=== PATIENT | male | born 1975 | race Caucasian/White ===

== ENCOUNTER 2020-05-05 18:59 | Emergency (ER) | payer SELFPAY ==
[~2020-05-05] VITALS: Ht 180.3 cm; Wt 61.8 kg
[~2020-05-05 18:59] MED LIST: HYDR1TAB PO; NAPR-232 PO; NO HOME MEDS
--- NOTE | 2020-05-05 19:11 | NUR ---
PT SISTER [phone]. THIS IS PT PREFERRED CONTACT. NOT . NUMBER PROVIDED FOR EMERGENCY ONLY. PT ZANE- [phone]
[2020-05-05 21:08] LABS: BASOPHILS % (AUTO) 0.4 % (0-1); EOSINOPHILS % (AUTO) 0.2 % (0-6); HEMATOCRIT 37.6 % (42.0-52.0); LYMPHOCYTES # (AUTO) 2.2 X10'3 (1.1-4.8); LYMPHOCYTES % (AUTO) 24.9 % (21-51); MEAN CORPUSCULAR HEMOGLOBIN 31.6 PG (27.0-31.0); MEAN CORPUSCULAR HGB CONC 34.5 g/dL (33.0-36.5); MEAN CORPUSCULAR VOLUME 91.6 FL (78-98); MEAN PLATELET VOLUME 6.5 FL (7.4-10.4); MONOCYTES # (AUTO) 0.8 X10'3 (0-0.9); MONOCYTES % (AUTO) 8.9 % (2-12); NEUTROPHILS # (AUTO) 5.9 X10'3 (1.8-7.7); NEUTROPHILS % (AUTO) 65.6 % (42-75); PLATELET COUNT 442 X10'3 (140-440); RED BLOOD COUNT 4.11 X10'6 (4.70-6.10); RED CELL DISTRIBUTION WIDTH 13.9 % (11.5-14.5); WHITE BLOOD COUNT 8.9 X10'3 (4.5-11.0)
[2020-05-05 21:09] LABS: CLARITY,URINE CLEAR (Clear); COLOR,URINE YELLOW (Yellow); GLUCOSE, URINE NEGATIVE (Neg); KETONES,URINE NEGATIVE (Neg); LEUKOCYTE ESTERASE ,URINE SMALL (Neg); NITRITES, URINE NEGATIVE (Neg); OCCULT BLOOD,URINE NEGATIVE (Neg); PROTEIN,URINE NEGATIVE (Neg); UROBILINOGEN,URINE 0.2 E.U/dL (0.2-1.0)
--- NOTE | 2020-05-05 21:13 | NUR ---
Patient brought from main ER to bed 22. No report given to this nurse on this patient.
[2020-05-05 21:14] LABS: UA COLLECTION TYPE CLN CATCH MIDSTREAM; URINE AMPHETAMINE SCREEN NEGATIVE (Neg); URINE BARBITUATE SCREEN NEGATIVE (Neg); URINE BENZODIAZEPINES SCREEN NEGATIVE (Neg); URINE CANNABINOID SCREEN POSITIVE (Neg); URINE COCAINE SCREEN NEGATIVE (Neg); URINE METHADONE SCREEN NEGATIVE (Neg); URINE OPIATE SCREEN NEGATIVE (Neg); URINE PHENCYCLIDINE SCREEN NEGATIVE (Neg)
[2020-05-05 21:18] LABS: BACTERIA,URINE NONE SEEN /HPF (Neg); RBC,URINE NONE SEEN /HPF (0-2); SQUAMOUS EPITHELIAL CELL,UR FEW /LPF (FEW); WBC,URINE 0-4 /HPF (0-4)
[2020-05-05 21:22] LABS: ALANINE AMINOTRANSFERASE 32 U/L (12-78); ALBUMIN 4.5 G/DL (3.4-5.0); ALBUMIN/GLOBULIN RATIO 1.3 (1.1-1.5); ALKALINE PHOSPHATASE 69 IU/L (46-116); ANION GAP 6 (8-16); ASPARTATE AMINO TRANSFERASE 17 U/L (10-37); BILIRUBIN,TOTAL 0.9 MG/DL (0.1-1.0); BLOOD UREA NITROGEN 13 MG/DL (7-18); CHLORIDE 101 MMOL/L (99-107); CREATININE 0.93 MG/DL (0.60-1.10); GLUCOSE 85 MG/DL (70-104); SODIUM 137 MMOL/L (135-145); TOTAL CARBON DIOXIDE 30.1 MMOL/L (24-32); TOTAL PROTEIN 7.9 G/DL (6.4-8.2); eGFR 89 ML/MIN
--- NOTE | 2020-05-05 21:25 | NUR ---
PT CHANGED INTO GREEN SCRUBS / NELONGIONG LIST COMPLETED
[2020-05-05 21:30] LABS: ETHANOL < 0.010 GM/DL (0.0-0.010)
--- NOTE | 2020-05-05 21:33 | NUR ---
PT GIVEN A TURKEY SANDWITCH AND SPOKE WITH DR SCHULZ . AT BEDSIDE
[2020-05-05] MEDS ORDERED: LORazepam 1 MG tablet PO ONE (21:35)
--- NOTE | 2020-05-05 22:00 | NUR ---
Patient presents with anxiety, he is tangential, thoughts are disorganized. Patient is cooperative, he believes he is manic, he presents with rapid speech, it is soft, the patern irregular. Patient is mid fowlers in bed. He is given water, warm blankets, and Ativan 2 mg PO. Patient is cooperative. He states he recently quit drinking and joined AA? Patients bed is in view from the nursing station. A [id number] hold is placed by the ER MD.
[2020-05-05] MEDS ORDERED: HYDR-3686 PO (22:52)
[2020-05-05] MEDS ORDERED: LISI10TA4 PO (22:52)
[2020-05-05] MEDS ORDERED: CLON-529 PO ×2 (22:59→23:03)
[2020-05-05] MEDS ORDERED: BUPR150T8 PO (23:05)
--- NOTE | 2020-05-06 00:48 | NUR ---
Patient is sleeping on his right side in bed.
--- NOTE | 2020-05-06 01:59 | NUR ---
Packet faxed to [facility].
--- NOTE | 2020-05-06 02:01 | NUR ---
Patient is sleeping quietly on his right side. No distress. In view from nursing station.
--- NOTE | 2020-05-06 04:28 | NUR ---
Patient is sleeping on his left side, in view from the nursing station.
[2020-05-06] MEDS ORDERED: LORazepam 1 MG tablet PO ONE (05:25)
--- NOTE | 2020-05-06 05:34 | NUR ---
Patient awoke expressing anxiety, trembling hands. Patient was given non slip socks. He ambulates to bathroom. Slightly ataxic gait. Patient returned to bed, Ativan 1 mg given PO. Patient mental status is slightly improved, he remains somewhat tangential, his look is disheveled. He is dressed in unit atire.
--- NOTE | 2020-05-06 07:56 | NUR ---
FAXED ETHYL ALCOHOL LEVEL TO [facility].
[2020-05-06] MEDS ORDERED: buPROPion SR 150mg tablet PO SCH (08:00)
[2020-05-06] MEDS ORDERED: cloNIDine 0.1 mg tablet PO SCH (08:00)
[2020-05-06] MEDS: hydrOXYzine 25 MG tablet PO SCH ×2 (08:22)
--- NOTE | 2020-05-06 08:44 | NUR ---
PROVIDED PT BREAKFAST
--- NOTE | 2020-05-06 08:59 | NUR ---
MENTAL HEALTH AT BEDSIDE
[2020-05-06 11:00] VITALS: BP 135/92
[2020-05-06] MEDS ORDERED: lisinopril 10 MG tablet PO SCH (21:00)
== END 2020-05-06 11:09 | disposition home or self-care (01) ==
LOC: ER 19:00
DX: F30.2 Manic episode, severe with psychotic symptoms (principal); F17.200 Nicotine dependence, unspecified, uncomplicated; Z72.89 Other problems related to lifestyle; Z79.899 Other long term (current) drug therapy
CPT/HCPCS: 36415; 80053; 80305; 80320; 81001; 84443; 85025; 99284; Q0177

== ENCOUNTER 2020-08-01 13:53 | Emergency (ER) | payer BC ==
[~2020-08-01] VITALS: Ht 180.3 cm; Wt 68.2 kg
[~2020-08-01 13:53] MED LIST changes: +BUPR150T8 PO; +CLON-529 PO; +HYDR-3686 PO; -HYDR1TAB PO; +LISI10TA4 PO; -NAPR-232 PO; -NO HOME MEDS
[2020-08-01 14:47] LABS: BASOPHILS % (AUTO) 0.3 % (0-1); EOSINOPHILS % (AUTO) 0.3 % (0-6); HEMATOCRIT 40.6 % (42.0-52.0); HEMOGLOBIN 13.9 g/dl (14.0-17.9); LYMPHOCYTES # (AUTO) 1.4 X10'3 (1.1-4.8); LYMPHOCYTES % (AUTO) 17.2 % (21-51); MEAN CORPUSCULAR HEMOGLOBIN 31.5 PG (27.0-31.0); MEAN CORPUSCULAR HGB CONC 34.2 g/dL (33.0-36.5); MEAN CORPUSCULAR VOLUME 92.2 FL (78-98); MEAN PLATELET VOLUME 7.5 FL (7.4-10.4); MONOCYTES # (AUTO) 0.5 X10'3 (0-0.9); MONOCYTES % (AUTO) 6.2 % (2-12); NEUTROPHILS # (AUTO) 6.3 X10'3 (1.8-7.7); PLATELET COUNT 311 X10'3 (140-440); RED BLOOD COUNT 4.41 X10'6 (4.70-6.10); RED CELL DISTRIBUTION WIDTH 14.1 % (11.5-14.5); WHITE BLOOD COUNT 8.3 X10'3 (4.5-11.0)
[2020-08-01 15:02] LABS: ALANINE AMINOTRANSFERASE 28 U/L (12-78); ALBUMIN 4.5 G/DL (3.4-5.0); ALBUMIN/GLOBULIN RATIO 1.3 (1.1-1.5); ALKALINE PHOSPHATASE 93 IU/L (46-116); ANION GAP 10 (8-16); ASPARTATE AMINO TRANSFERASE 15 U/L (10-37); BILIRUBIN,TOTAL 1.1 MG/DL (0.1-1.0); BLOOD UREA NITROGEN 15 MG/DL (7-18); CALCIUM 9.1 MG/DL (8.5-10.1); CHLORIDE 106 MMOL/L (99-107); CREATININE 1.15 MG/DL (0.60-1.10); GLUCOSE 120 MG/DL (70-104); POTASSIUM 4.2 MMOL/L (3.5-5.1); SODIUM 144 MMOL/L (135-145); TOTAL CARBON DIOXIDE 27.7 MMOL/L (24-32); eGFR 69 ML/MIN
[2020-08-01] MEDS ORDERED: diphenhydrAMINE 25mg capsule PO ONE (17:35)
[2020-08-01] MEDS ORDERED: normal saline 1000ML IV soln IVB ONE (18:35)
[2020-08-01 18:48] VITALS: BP 124/87
== END 2020-08-01 18:49 | disposition home or self-care (01) ==
LOC: ER 13:54
DX: R00.2 Palpitations (principal); I10 Essential (primary) hypertension; F41.9 Anxiety disorder, unspecified; F17.200 Nicotine dependence, unspecified, uncomplicated; F12.90 Cannabis use, unspecified, uncomplicated; Z72.89 Other problems related to lifestyle; Z79.899 Other long term (current) drug therapy
CPT/HCPCS: 36415; 71045; 80053; 83880; 84484; 85025; 93005; 99285; Q0163